=== PATIENT | male | born 1970 | race African-American/Black ===

== ENCOUNTER 2023-02-24 14:40 | Emergency (ER) | payer MEDICAID, OTHER ==
[~2023-02-24] VITALS: Ht 175.3 cm; Wt 94.6 kg
[2023-02-24 14:50] VITALS: BP 135/94
[2023-02-24] MEDS ORDERED: IBUP-1454 PO (16:24)
[2023-02-27] MEDS ORDERED: HYDR-4798 PO (17:40)
== END 2023-02-24 16:25 | disposition home or self-care (01) ==
LOC: ER 14:40
DX: S81.811D Laceration without foreign body, right lower leg, subsequent encounter (principal); R60.0 Localized edema; Z48.00 Encounter for change or removal of nonsurgical wound dressing; Z79.1 Long term (current) use of non-steroidal anti-inflammatories (NSAID); W01.110D Fall on same level from slipping, tripping and stumbling with subsequent striking against sharp glass, subsequent encounter
CPT/HCPCS: 73610; 73630